=== PATIENT | female | born 1940 | race Caucasian/White ===

== ENCOUNTER 2022-06-27 13:14 | Outpatient (CLI) | payer MEDICARE ==
[2022-06-27] VITALS (21 sets, daily range): BP systolic 145–199; BP diastolic 62–124
== END 2022-06-27 23:59 | disposition home or self-care (01) ==
LOC: CARD DIAG 13:14
PROVIDERS: ATTEND Internal Medicine Cardiovascular Disease
DX: R42 Dizziness and giddiness (principal)
CPT/HCPCS: 93660